=== PATIENT | male | born 1980 | race Hispanic/Latino ===

== ENCOUNTER 2017-01-29 17:14 | Emergency (ER) | payer MEDICAID ==
[2017-01-29 17:52] VITALS: BP 131/82; PULSE 97; RESP 14; TEMP 98.3; O2SAT 97
--- NOTE | 2017-01-29 18:27 | C.PDOC ---
History Of Present Illness 36 y/o M presents for prescription refill. Patient states he is currently in program with [facility] and informed them that he need to refill his prescriptions and they instructed him to go to ER for refills. He denies any active symptoms or complaints. Time Seen by Provider: 01/29/17 18:20 Chief Complaint (Nursing): Med Refill Past Medical History Vital Signs: Last Vital Signs Temp 98.3 F 01/29/17 17:49 Pulse 97 H 01/29/17 17:49 Resp 14 01/29/17 17:49 BP 131/82 01/29/17 17:49 Pulse Ox 97 01/29/17 18:27 - Medical History PMH: Depression Family History: States: No Known Family Hx - Social History Hx Alcohol Use: No Hx Substance Use: No - Immunization History Hx Tetanus Toxoid Vaccination: No Hx Influenza Vaccination: No Hx Pneumococcal Vaccination: No Review Of Systems Except As Marked, All Systems Reviewed And Found Negative. Constitutional: Negative for: Fever Respiratory: Negative for: Shortness of Breath Physical Exam - Physical Exam Appears: No Acute Distress Head: Atraumatic, Normacephalic Oral Mucosa: Moist Neck: Supple Chest: No Deformity Respiratory: No Accessory Muscle Use Gastrointestinal/Abdominal: Soft Extremity: No Tenderness, No Swelling Pulses: Left Radial: Normal, Right Radial: Normal Neurological/Psych: Normal Speech ED Course And Treatment O2 Sat by Pulse Oximetry: 97 Medical Decision Making Medical Decision Making: Refills provided. Instructed patient to make appointment with primary care for further management of these medications as an EM physician will be unable to make any appropriate changes to chronic medications and that refilling prescriptions in ER is inappropriate. Disposition - Disposition Disposition: HOME/ ROUTINE Disposition Time: 18:25 Condition: STABLE Prescriptions: Citalopram [celEXA] 20 mg PO DAILY #30 tab Gabapentin [Neurontin] 300 mg PO TID #90 cap Instructions: Medicine Refill (ED) - Clinical Impression Clinical Impression: Medication refill
== END 2017-01-29 18:36 | disposition home or self-care (01) ==
LOC: C.ER 17:14
DX: Z76.0 Encounter for issue of repeat prescription (principal)